=== PATIENT | female | born 1960 | race Caucasian/White ===

== ENCOUNTER 2020-09-26 05:36 | Outpatient (RCR) | payer OTHER ==
[~2020-09-26] VITALS: Ht 162 cm; Wt 56.8 kg
[~2020-09-26 05:36] MED LIST: ESTR1TAB18 PO; MULT-1136 PO
== END 2020-09-26 11:49 | disposition home or self-care (01) ==
LOC: PREOP 05:36
PROVIDERS: ATTEND Internal Medicine
DX: Z01.812 Encounter for preprocedural laboratory examination (principal); Z12.11 Encounter for screening for malignant neoplasm of colon; Z20.828 Contact with and (suspected) exposure to other viral communicable diseases
CPT/HCPCS: 87635

== ENCOUNTER 2020-09-30 06:57 | Day surgery (SDC) | payer OTHER ==
[~2020-09-30] VITALS: Ht 162 cm; Wt 56.8 kg
[2020-09-30] MEDS ORDERED: LACTATED RINGERS 1,000 ML IV STA (07:08)
[2020-09-30] MEDS ORDERED: LACTATED RINGERS 1,000 ML IV ONE (07:08)
[2020-09-30] MEDS ORDERED: MIDAZOLAM 2 MG/2 ML (VERSED) VIAL ONE (07:11)
[2020-09-30] MEDS ORDERED: PROPOFOL INJECTION 50 ML IV ONE ×2 (07:11→08:01)
[2020-09-30] MEDS ORDERED: LIDOCAINE JELLY 2% 6 ML SYRINGE MM PRN (07:15)
[2020-09-30 07:21] VITALS: BP 116/67
--- NOTE | 2020-09-30 07:34 | Pre-Op Note & Conscious Sedat ---
Pre-Operative Progress Note H&P Reviewed The H&P was reviewed, patient examined and no changes noted. Date H&P Reviewed: Sep 30, 2020 Time H&P Reviewed: 07:25 Conscious Sedation Pre-Proced ASA Score 1 For ASA 3 and 4: Consider anesthesia and medical clearance. Also, for patients with a history of failed moderate sedation consider anesthesia. Airway Lungs Heart ASA score ASA 1: a normal healthy patient ASA 2: a patient with a mild systemic disease (mid diabetes, controlled hypertension, obesity ASA 3: a patient with a severe systemic disease that limits activity (angina, COPD, prior Myocardial infarction) ASA 4: a patient with an incapacitating disease that is a constant threat to life (CHF, renal failure) ASA 5: a moribund patient not expected to survive 24 hrs. (ruptured aneurysm) ASA 6: a declared brain- patient whose organs are being harvested. For emergent operations, add the letter E after the classification Mallampati Classification Grade 1 Sedation Plan Analgesia, Amnesia, Plan communicated to team members, Discussed options with patient/fam, Discussed risks with patient/fam The patient is an appropriate candidate to undergo the planned procedure, sedation, and anesthesia. The patient immediately re-assessed prior to indication. BECKA RAGLAND MD Sep 30, 2020 07:34
[2020-09-30 08:15] VITALS: BP 106/54
[2020-09-30 08:20] VITALS: BP 109/57
[2020-09-30 08:25] VITALS: BP 115/60
[2020-09-30 08:50] VITALS: BP 131/60
[2020-09-30 09:05] VITALS: BP 131/60
--- NOTE | 2020-09-30 11:53 | OPERATIVE REPORT ---
DATE OF SERVICE: COLONOSCOPY SUMMARY INDICATION FOR THE PROCEDURE: Screening. DESCRIPTION OF PROCEDURE: The patient was placed in the left lateral decubitus position. Prior to undergoing colonoscopy, a digital rectal evaluation was performed. Anal sphincter tone was normal and the perianal reflex was intact. No abnormalities were noted to the digital inspection of the anal canal or distal rectal vault. The colonoscope was then inserted into the rectum and under direct visualization advanced to the cecum. The cecum was identified by identification of the ileocecal valve and cecal strap. Photographic documentation was obtained. Careful inspection was made as the colonoscope was withdrawn. The procedure was done under Diprivan base anesthesia. FINDINGS: There was no evidence for internal or external hemorrhoids and the rectum was unremarkable. Present in the proximal sigmoid colon at 41 and 45 cm from the anal verge were two sessile polyps measuring approximately 6 mm and 1 cm in size. The smaller polyp was cauterized and a sample was sent for histopathology. The larger polyp was removed via snare and the base was cauterized neither with any blood loss. No evidence for diverticular disease was noted. The descending colon, splenic flexure, transverse colon, hepatic flexure, ascending colon and cecum were unremarkable. ASSESSMENT: Two sessile polyps were removed as noted above, both with adenomatous features from 41 and 45 cm from the anal verge located in the proximal sigmoid colon. As long as there is no evidence for high-grade dysplasia or malignancy, we will be recommending repeat surveillance colonoscopy in one year. No other abnormalities were noted on today's procedure under fair prep conditions. I thank you for the referral of this pleasant lady. Job ID: [id number] DocumentID: [id number] Dictated Date: 09/30/2020 08:23:10 Director Of Corporate Sponsorships Date: 09/30/2020 11:52:27 Dictated By: BECKA RAGLAND MD
--- NOTE | 2020-09-30 13:33 | Anesthesia-General Post-Op ---
MAC Patient Condition Mental Status/LOC: Same as Preop Cardiovascular: Satisfactory Nausea/Vomiting: Absent Respiratory: Satisfactory Pain: Controlled Complications: Absent Post Op Complications Complications None Follow Up Care/Instructions Patient Instructions None needed. Anesthesiology Discharge Order Discharge Order Patient is doing well, no complaints, stable vital signs, no apparent adverse anesthesia problems. No complications reported per nursing. LATISHA KELLEY CRNA Sep 30, 2020 13:33
== END 2020-09-30 09:05 | disposition home or self-care (01) ==
LOC: ENDO 06:57
PROVIDERS: ATTEND Internal Medicine
DX: Z12.11 Encounter for screening for malignant neoplasm of colon (principal); D12.5 Benign neoplasm of sigmoid colon; Z80.49 Family history of malignant neoplasm of other genital organs

== ENCOUNTER 2021-01-01 05:43 | Outpatient (CLI) | payer OTHER | END 2021-01-01 13:52 | disposition home or self-care (01) | LOC: PREOP 05:43 | PROVIDERS: ATTEND Internal Medicine | DX: Z01.818 Encounter for other preprocedural examination (principal) ==

== ENCOUNTER 2021-01-09 07:41 | Day surgery (SDC) | payer BC, OTHER ==
--- NOTE | 2020-12-31 06:49 | HISTORY AND PHYSICAL ---
DATE OF SERVICE: COLONOSCOPY HISTORY AND PHYSICAL REFERRING PHYSICIAN: Dr. Blancas. The patient is a 60-year-old white female who on colonoscopy 4 months ago was noted to have a sessile polyp in the proximal sigmoid colon. It was biopsied and ablated. There was evidence for extensive high-grade dysplasia. Portion was behind a fold, so to document that there is truly complete eradication, the patient is undergoing early surveillance colonoscopy. She had no difficulty with her last colonoscopy report. No bleeding problems or pain. FAMILY HISTORY: Her mother of uterine cancer. She thinks she has an aunt who had polyps removed, but she is not aware of any colon cancer in the family. She does not know much about father's side of the family, he is still living at the age of 84 without colon cancer, but he is adopted and does not know anything about his family history. The patient reports no change in past medical history. She has felt well since her colonoscopy late last year and is only on hormone replacement therapy in the form of Prempro. 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 She is with adult children. PHYSICAL EXAMINATION: GENERAL: Reveals a white female, appears to be in no acute distress. VITAL SIGNS: Weight stable at 123 pounds, blood pressure 120/76. HEENT: Unremarkable. Sclerae nonicteric. CHEST: Clear to auscultation. CARDIOVASCULAR: Reveals a regular rate and rhythm without murmur, S3 or S4. ABDOMEN: Soft, supple without mass, organomegaly or tenderness. EXTREMITIES: Reveal no cyanosis, clubbing or edema. ASSESSMENT AND PLAN: The patient is set up for surveillance colonoscopy with a careful attention to previous adenomatous polyp with extensive high-grade dysplasia for witch the patient underwent ablation from the proximal sigmoid colon. Prep instructions were given and questions were answered. I thank you for the referral. Job ID: [id number] DocumentID: [id number] Dictated Date: 12/30/2020 11:38:46 Deal Architect Date: 12/30/2020 11:59:15 Dictated By: BECKA RAGLAND MD [facility]
[~2021-01-09] VITALS: Ht 162.6 cm; Wt 56.8 kg
[2021-01-09] MEDS ORDERED: LACTATED RINGERS 1,000 ML IV ONE (07:43)
[2021-01-09] MEDS ORDERED: MIDAZOLAM 2 MG/2 ML (VERSED) VIAL ONE (07:44)
[2021-01-09] MEDS ORDERED: PROPOFOL INJECTION 0 ML IV ONE (07:44)
[2021-01-09] MEDS ORDERED: LACTATED RINGERS 1,000 ML IV STA (07:56)
[2021-01-09] MEDS ORDERED: LIDOCAINE JELLY 2% 6 ML SYRINGE MM PRN (08:00)
--- NOTE | 2021-01-09 08:02 | Pre-Op Note & Conscious Sedat ---
Pre-Operative Progress Note H&P Reviewed The H&P was reviewed, patient examined and no changes noted. Date H&P Reviewed: Jan 09, 2021 Time H&P Reviewed: 08:01 Conscious Sedation Pre-Proced ASA Score 1 For ASA 3 and 4: Consider anesthesia and medical clearance. Also, for patients with a history of failed moderate sedation consider anesthesia. Airway Lungs Heart ASA score ASA 1: a normal healthy patient ASA 2: a patient with a mild systemic disease (mid diabetes, controlled hypertension, obesity ASA 3: a patient with a severe systemic disease that limits activity (angina, COPD, prior Myocardial infarction) ASA 4: a patient with an incapacitating disease that is a constant threat to life (CHF, renal failure) ASA 5: a moribund patient not expected to survive 24 hrs. (ruptured aneurysm) ASA 6: a declared brain- patient whose organs are being harvested. For emergent operations, add the letter E after the classification Mallampati Classification Grade 1 Sedation Plan Analgesia, Amnesia, Plan communicated to team members, Discussed options with patient/fam, Discussed risks with patient/fam The patient is an appropriate candidate to undergo the planned procedure, sedation, and anesthesia. The patient immediately re-assessed prior to indication. BECKA RAGLAND MD Jan 09, 2021 08:02
[2021-01-09 08:12] VITALS: BP 120/72
[2021-01-09] MEDS ORDERED: LIDOCAINE JELLY 2% 6 ML SYRINGE ONE (08:48)
[2021-01-09] MEDS ORDERED: PROPOFOL INJECTION 50 ML IV ONE (08:50)
[2021-01-09] MEDS ORDERED: proPOfol 200 MG/20 ML (DIPRIVAN) VIAL IV ONE (08:59)
[2021-01-09 09:30] VITALS: BP 97/55
[2021-01-09 09:35] VITALS: BP 95/59
[2021-01-09 09:40] VITALS: BP 110/70
[2021-01-09 10:10] VITALS: BP 96/61
[2021-01-09 10:11] VITALS: BP 96/61
--- NOTE | 2021-01-09 11:54 | Anesthesia-General Post-Op ---
MAC Patient Condition Mental Status/LOC: Same as Preop Cardiovascular: Satisfactory Nausea/Vomiting: Absent Respiratory: Satisfactory Pain: Controlled Complications: Absent Post Op Complications Complications None Follow Up Care/Instructions Patient Instructions None needed. Anesthesiology Discharge Order Discharge Order Patient is doing well, no complaints, stable vital signs, no apparent adverse anesthesia problems. No complications reported per nursing. LATISHA KELLEY CRNA Jan 09, 2021 11:54
--- NOTE | 2021-01-09 14:10 | OPERATIVE REPORT ---
DATE OF SERVICE: COLONOSCOPY SUMMARY INDICATION FOR THE PROCEDURE: Surveillance colonoscopy due to past history of colonic adenoma with high-grade dysplasia removed from the proximal sigmoid colon little over 4 months ago. DESCRIPTION OF PROCEDURE: The patient was placed in the left lateral decubitus position. Prior to undergoing colonoscopy, digital rectal evaluation was performed. Anal sphincter tone was normal and the perianal reflexes intact. No abnormalities were noted on digital inspection of anal canal or distal rectal vault. The colonoscope was then inserted into the rectum and advanced to the cecum. The cecum was identified by identification of ileocecal valve and cecal strap. Photographic documentation was obtained. Careful inspection was made as the colonoscope withdrawn. The patient tolerated the procedure well and Diprivan based anesthesia. Quality of prep was good. FINDINGS: The rectum was unremarkable. There was a questionable sessile polyp noted in the distal sigmoid colon, the unlikely location of the previous removed polyp, which on previous colonoscopy was in the proximal sigmoid, it was biopsied, ablated and submitted for histopathology. The remainder of the sigmoid colon was unremarkable as was the descending colon, splenic flexure, transverse colon, hepatic flexure, ascending colon and cecum. No evidence for diverticular disease was noted. ASSESSMENT: Questionable sessile polyp in the distal sigmoid colon. I saw no evidence for recurrence of the proximal sigmoid colonic polyp that was removed last year, which had evidence for high-grade dysplasia on histopathology report. We will advocate repeat surveillance colonoscopy in one year as long as there are no surprises on histopathology report. I thank you for the referral. Job ID: [id number] DocumentID: [id number] Dictated Date: 01/09/2021 09:36:37 Imaging Science Professor Date: 01/09/2021 14:10:17 Dictated By: BECKA RAGLAND MD [facility]
== END 2021-01-09 10:35 | disposition home or self-care (01) ==
LOC: ENDO 07:41
PROVIDERS: ATTEND Internal Medicine
DX: Z12.11 Encounter for screening for malignant neoplasm of colon (principal); Z86.010 Personal history of colon polyps; Z80.49 Family history of malignant neoplasm of other genital organs

== ENCOUNTER 2022-01-21 05:31 | Outpatient (CLI) | payer BC ==
[~2022-01-21] VITALS: Ht 162.6 cm; Wt 54.5 kg
== END 2022-01-25 13:18 | disposition home or self-care (01) ==
LOC: PREOP 05:31
PROVIDERS: ATTEND Internal Medicine
DX: Z01.818 Encounter for other preprocedural examination (principal)

== ENCOUNTER 2022-01-29 09:13 | Day surgery (SDC) | payer BC ==
[~2022-01-29] VITALS: Ht 162 cm; Wt 54.5 kg
[~2022-01-29 09:13] MED LIST changes: +LACTATED RINGERS 1,000 ML IV STA
[2022-01-29] MEDS ORDERED: LIDOCAINE JELLY 2% 6 ML SYRINGE MM PRN (09:15)
[2022-01-29] MEDS ORDERED: LACTATED RINGERS 1,000 ML IV ONE (09:18)
[2022-01-29 09:20] VITALS: BP 124/75
[2022-01-29] MEDS ORDERED: PROPOFOL INJECTION 50 ML IV ONE (09:26)
[2022-01-29] MEDS ORDERED: MIDAZOLAM 2 MG/2 ML (VERSED) VIAL ONE (09:26)
--- NOTE | 2022-01-29 09:31 | Pre-Op Note & Conscious Sedat ---
Pre-Operative Progress Note H&P Reviewed The H&P was reviewed, patient examined and no changes noted. Date H&P Reviewed: Jan 29, 2022 Time H&P Reviewed: 09:30 Conscious Sedation Pre-Proced ASA Score 1 For ASA 3 and 4: Consider anesthesia and medical clearance. Also, for patients with a history of failed moderate sedation consider anesthesia. Airway Lungs Heart ASA score ASA 1: a normal healthy patient ASA 2: a patient with a mild systemic disease (mid diabetes, controlled hypertension, obesity ASA 3: a patient with a severe systemic disease that limits activity (angina, COPD, prior Myocardial infarction) ASA 4: a patient with an incapacitating disease that is a constant threat to life (CHF, renal failure) ASA 5: a moribund patient not expected to survive 24 hrs. (ruptured aneurysm) ASA 6: a declared brain- patient whose organs are being harvested. For emergent operations, add the letter E after the classification Mallampati Classification Grade 2 Sedation Plan Analgesia, Amnesia, Plan communicated to team members, Discussed options with patient/fam, Discussed risks with patient/fam The patient is an appropriate candidate to undergo the planned procedure, sedation, and anesthesia. The patient immediately re-assessed prior to indication. BECKA RAGLAND MD Jan 29, 2022 09:31
[2022-01-29 10:17] VITALS: BP 105/55
[2022-01-29 10:22] VITALS: BP 99/55
[2022-01-29 10:25] VITALS: BP 109/59
[2022-01-29 10:47] VITALS: BP 114/76
--- NOTE | 2022-01-29 14:00 | Anesthesia-General Post-Op ---
MAC Patient Condition Mental Status/LOC: Same as Preop Cardiovascular: Satisfactory Nausea/Vomiting: Absent Respiratory: Satisfactory Pain: Controlled Complications: Absent Post Op Complications Complications None Follow Up Care/Instructions Patient Instructions None needed. Anesthesiology Discharge Order Discharge Order Patient is doing well, no complaints, stable vital signs, no apparent adverse anesthesia problems. No complications reported per nursing. CESAR CHAKRABORTY CRNA Jan 29, 2022 14:00
--- NOTE | 2022-01-29 15:32 | OPERATIVE REPORT ---
DATE OF SERVICE: COLONOSCOPY SUMMARY INDICATION FOR THE PROCEDURE: Surveillance colonoscopy, history of colon polyps. Most concerning was a sessile adenoma with high-grade dysplasia previously removed from the sigmoid colon. DESCRIPTION OF PROCEDURE: The patient was placed in the left lateral decubitus position. Prior to undergoing colonoscopy, a digital rectal evaluation was performed. Anal sphincter tone was normal and the perianal reflexes intact. No abnormalities were noted on digital inspection of anal canal or distal rectal vault. The colonoscope was then inserted into the rectum and under direct visualization advanced to the cecum. The cecum was identified by identification of the ileocecal valve and cecal strap. Photographic documentation was obtained. Quality of prep was fair. FINDINGS: There was no evidence for internal or external hemorrhoids and the rectum was unremarkable. There was no evidence for any recurrence of previous sigmoid adenoma with focal high-grade dysplasia. No other sigmoid colonic abnormalities were appreciated. The descending colon, splenic flexure, transverse colon, hepatic flexure, and ascending colon were unremarkable. Present in the cecum adjacent to the eliana-appendiceal orifice was a sessile adenomatous appearing polyp 2 to 3 mm in width and about 1 cm in length. It was snared and removed in its entirety with minimal blood loss. ASSESSMENT: Cecal polyp was removed via snare resection with minimal blood loss and there was no evidence for previously removed sigmoid polyp with focal high-grade dysplasia. We will await histopathology report before making recommendations for future surveillance colonoscopy. Prep was suboptimal. We will discuss this with the patient prior to her next procedure. Job ID: [id number] DocumentID: [id number] Dictated Date: 01/29/2022 10:14:58 Fire Patrol Date: 01/29/2022 14:40:36 Dictated By: BECKA RAGLAND MD
--- NOTE | 2022-02-03 11:02 | HISTORY AND PHYSICAL ---
DATE OF SERVICE: 01/29/2022 COLONOSCOPY HISTORY AND PHYSICAL HISTORY OF PRESENT ILLNESS: The patient is a 61-year-old white female referred by Dr. Blancas for diagnostic colonoscopy. She has a history of colonic adenoma with high-grade dysplasia removed from the proximal sigmoid colon a little over one year ago. She is undergoing surveillance colonoscopy. She is not aware of any family history for colon cancer. Denies bright red blood per rectum, melena, change in bowel habit or change in weight. PAST MEDICAL HISTORY: Noncontributory. MEDICATIONS: She takes Prempro for menopausal symptoms and is on no other medication. PAST SURGICAL HISTORY: She reports no past surgical history. FAMILY HISTORY: She is not aware of any family history for colon cancer. PHYSICAL EXAMINATION: GENERAL: Reveals a white female, appears to be in no acute distress. HEENT: Unremarkable. Sclerae nonicteric. CHEST: Clear. CARDIOVASCULAR: Reveals regular rate and rhythm without murmur, S3 or S4. ABDOMEN: Soft, supple without mass, organomegaly or tenderness. EXTREMITIES: Reveal no cyanosis, clubbing or edema. ASSESSMENT AND PLAN: The patient is being set up for surveillance colonoscopy due to a history of colonic adenoma with high-grade dysplasia that was removed from the sigmoid colon a little over one year ago. I thank you for the referral of this pleasant lady. Job ID: [id number] DocumentID: [id number] Dictated Date: 01/07/2022 11:26:59 Federal Judge Date: 01/07/2022 11:52:57 Dictated By: BECKA RAGLAND MD <Dictated by BECKA RAGLAND MD> <Electronically signed by BECKA RAGLAND MD> 01/09/22 1518 MTDD
== END 2022-01-29 10:50 | disposition home or self-care (01) ==
LOC: ENDO 09:13
PROVIDERS: ATTEND Internal Medicine
DX: Z12.11 Encounter for screening for malignant neoplasm of colon (principal); D12.0 Benign neoplasm of cecum; Z86.010 Personal history of colon polyps
CPT/HCPCS: 88305

== ENCOUNTER 2023-06-29 14:26 | Outpatient (RCR) | payer BC ==
[~2023-06-29 14:26] MED LIST changes: -LACTATED RINGERS 1,000 ML IV STA
== END 2023-07-09 | disposition home or self-care (01) ==
PROVIDERS: ATTEND Physical Therapist
DX: R07.81 Pleurodynia (principal)

== ENCOUNTER 2023-07-18 16:30 | Outpatient (RCR) | payer BC | END 2023-08-09 | disposition home or self-care (01) | PROVIDERS: ATTEND Physical Therapist | DX: R07.81 Pleurodynia (principal) ==

== ENCOUNTER 2023-08-12 14:44 | Outpatient (RCR) | payer BC | END 2023-09-08 | disposition home or self-care (01) | PROVIDERS: ATTEND Physical Therapist | DX: R07.81 Pleurodynia (principal) ==